=== PATIENT | male | born 1955 ===

== ENCOUNTER 2017-05-02 10:23 | Emergency (ER) | payer OTHER ==
[2017-05-02 10:41] VITALS: RESP 16; TEMP 97.3; O2SAT 98
--- NOTE | 2017-05-02 11:12 | C.PDOC ---
History Of Present Illness Shmuel Perez is a 61 year old male, with a past medical history of niddm, who presents to the emergency department complaining of left knee pain and swelling s/p twist onset x1 week ago. Patient took Aleve OTC but with no relief of symptoms. He denies any trauma or other medical complaints. PMD: José Luis Wright Time Seen by Provider: 05/02/17 11:04 Chief Complaint (Nursing): Lower Extremity Problem/Injury History Per: Patient History/Exam Limitations: no limitations Onset/Duration Of Symptoms: Days (x1 week) Current Symptoms Are (Timing): Still Present - Knee Description Of Injury: Twisted Alleviating Factor(s): denies: OTC Pain Medication Past Medical History Reviewed: Historical Data, Nursing Documentation, Vital Signs Vital Signs: Last Vital Signs Temp 97.3 F L 05/02/17 10:38 Pulse 78 05/02/17 12:47 Resp 16 05/02/17 12:47 BP 142/88 05/02/17 12:47 Pulse Ox 98 05/04/17 08:50 - Medical History PMH: No Chronic Diseases Surgical History: No Surg Hx Family History: States: Unknown Family Hx - Social History Hx Tobacco Use: No Hx Alcohol Use: No Hx Substance Use: No Review Of Systems Musculoskeletal: Positive for: Leg Pain (left knee w/ swelling) Skin: Negative for: Bruising Neurological: Negative for: Weakness, Numbness Physical Exam - Physical Exam Appears: No Acute Distress Skin: Normal Color, Warm, Dry Head: Atraumatic Eye(s): bilateral: Normal Inspection Neck: Normal ROM, Supple Extremity: No Normal ROM (decrease ROM of left knee), Tenderness (to medial suprapatellar area of left knee with mild warmth, no erythema, possible effusion ), No Calf Tenderness, No Deformity Pulses: Left Dorsalis Pedis: Normal (2+) Neurological/Psych: Oriented x3, Normal Speech, Normal Cognition, Normal Motor, Normal Sensation ED Course And Treatment O2 Sat by Pulse Oximetry: 98 (RA) Pulse Ox Interpretation: Normal - Other Rad left knee Interpretation: No fracture or lytic lesion. Minimal osteoarthrosis lateral femoral tibial compartment. Small suprapatellar joint effusion -probable Medical Decision Making Medical Decision Making: Initial Impression: left knee pain s/p twist Initial Plan: --Toradol 30 mg IM --Knee immobilizer --Cold compresses --reevaluation 12:42 --Upon provider reevaluation patient is feeling better, is medically stable, and requires no further treatment in the ED at this time. Patient will be discharged home with Rx for motrin. Counseling was provided and all questions were answered regarding diagnosis and need for follow up. There is agreement to discharge plan. Return if symptoms persist or worsen. Disposition Counseled Patient/Family Regarding: Studies Performed, Diagnosis, Need For Followup, Rx Given - Disposition Referrals: José Luis Wright MD [Medical Doctor] - Good Live MD [Staff Provider] - Disposition: HOME/ ROUTINE Disposition Time: 12:42 Condition: STABLE Additional Instructions: Use inmovilizador de rodilla para mayor comodidad. Aplique compresas fras a la rodilla varias veces al da. Sulligent ibuprofeno para el dolor segn lo recetado. Deja un seguimiento con el Dr. Hayden y el Dr. Live (ortopedia). Wear knee immobilizer for comfort, Apply cold compresses to knee several times a day. Take ibuprofen for pain as prescribed. Follow up with Dr Hayden and Dr Live (orthopedics). Prescriptions: Ibuprofen [Motrin] 600 mg PO TID #30 tab Instructions: Swollen Knee Joint (ED) Forms: Gen Discharge Inst Moz[place]ican, [facility] (Mozambican), Work Excuse Print Language: ALBANIAN - Clinical Impression Clinical Impression: Left knee injury, Knee effusion, left - Scribe Statement Heath Morelos All medical record entries made by the Scribe were at my direction and personally dictated by me. I have reviewed the chart and agree that the record accurately reflects my personal performance of the history, physical exam, medical decision making, and the department course for this patient. I have also personally directed, reviewed, and agree with the discharge instructions and disposition.
--- NOTE | 2017-05-02 12:29 | RAD ---
PROCEDURE: Left Knee Radiographs. HISTORY: Pain. COMPARISON: None. FINDINGS: BONES: Lateral tibial spine mild spurring No fracture. JOINTS: Minimal osteoarthritis. JOINT EFFUSION: Small effusion probably present OTHER FINDINGS: None. IMPRESSION: No fracture or lytic lesion Minimal osteoarthrosis lateral femoral tibial compartment Small suprapatellar joint effusion -probable
[2017-05-02 12:48] VITALS: BP 142/88; PULSE 78
== END 2017-05-02 12:57 | disposition home or self-care (01) ==
LOC: C.ER 10:23
DX: S89.92XA Unspecified injury of left lower leg, initial encounter (principal); X50.9XXA Other and unspecified overexertion or strenuous movements or postures, initial encounter; M25.462 Effusion, left knee
CPT/HCPCS: 73562; 96372; 99284; J1885

== ENCOUNTER 2018-09-08 09:39 | Outpatient (CLI) | payer MEDICAID | END 2018-09-08 09:40 | disposition home or self-care (01) | LOC: C.RADIC 09:40 | DX: M25.519 Pain in unspecified shoulder (principal); M25.50 Pain in unspecified joint ==